=== PATIENT | male | born 1950 | race Caucasian/White ===

== ENCOUNTER 2023-03-01 18:23 | Emergency (ER) | payer MEDICARE, OTHER, SELFPAY ==
[2023-03-01] VITALS (18 sets, daily range): BP systolic 104–121; BP diastolic 68–95; PULSE 85–135; RESP 14–28; TEMP 36.3–36.6; O2SAT 95–100
--- NOTE | 2023-03-01 | ECG_ITS ---
Measurements Intervals [place] Rate: 90 P: [place]: 0 QRS: 248 QRSD: 140 T: 204 QT: 404 QTc: 495 Interpretive Statements ATRIAL FLUTTER/TACHYCARDIA WITH NORMAL VENTRICULAR RESPONSE LEFT BUNDLE BRANCH BLOCK BASELINE ARTIFACT- I, II, AVR, AVL, AVF ABNORMAL ECG COMPARED TO ECG 03/01/2023 18:30:55 HEART RATE HAS DECREASED Electronically Signed On 03-02-2023 7:04:13 CDT by Jason Palm D.O.
--- NOTE | ~2023-03-01 | CT_ITS ---
Clinical Indication: Shortness of breath, hyperbilirubinemia CT Scan of the Chest, Abdomen, and Pelvis without Contrast: Technique: Contiguous sections were acquired throughout the chest, abdomen, and pelvis without IV con trast administration. Dose reduction technique was used on this scan by utilizing automated exposure control and iterative reconstruction technique. The dose-length product (DLP) was 739.68 mGy-cm. Findings: There is no evidence of any significant mediastinal, hilar or axillary lymphadenopathy. Small calcifi ed mediastinal/hilar lymph nodes are present. Atherosclerotic calcifications of the aorta and coronar y arteries are present. No pericardial effusion. No aortic aneurysm. Small bilateral pleural effusions are present. There is mild to moderate emphysema. There is a 1.9 cm spiculated nodule in the anterior right upper lobe (axial image 31). Several calcified granulomas are present. Questionable micronodular contour of the liver noted. The spleen, pancreas, gallbladder, adrenals and kidneys are within normal limits. There are atherosclerotic calcifications of the aorta. No lymphad enopathy. No bowel obstruction or bowel wall thickening. There is no evidence to suggest acute appendicitis. Possible urinary bladder wall thickening versus underdistention. Prostate gland and seminal vesicles are unremarkable. Small amount of abdominopelvic ascites is present. Mild compression deformity of T8 . Impression: 1.9 cm spiculated right upper lobe nodule. This is suspicious for neoplasm, versus possibly nodular s carring. Recommend tissue sampling to establish a histologic diagnosis versus PET/CT. Mild to moderate emphysema. Small bilateral pleural effusions. Questionable micronodular contour of liver. Correlate for cirrhosis. Small amount of abdominopelvic ascites. Probable mild compression deformity of T8, likely chronic. Reviewed, dictated and finalized at [facility]. Impression: 1.9 cm spiculated right upper lobe nodule. This is suspicious for neoplasm, [place] possibly nodular scarring. Recommend tissue sampling to establish a histolo gic diagnosis versus PET/CT. Mild to moderate emphysema. Small bilateral pleural effusions. Questionable micronodular contour of liver. Correlate for cirrhosis. Small amount of abdominopelvic ascites. Probable mild compression deformity of T8, likely chronic.
--- NOTE | ~2023-03-01 | XR_ITS ---
Portable chest x-ray Comparison: None Clinical History: Palpitations Findings: Lungs are clear, without focal consolidation or pleural effusion. Cardiomediastinal silho uette is mildly prominent, status post median sternotomy. Bones and soft tissues are unremarkable. Impression: Clear lungs. Mild cardiomegaly, status post median sternotomy. Correlate with cardiac clinical history. Reviewed, dictated and finalized at location . Impression: Clear lungs. Mild cardiomegaly, status post median sternotomy. Correlate with cardiac clinic al history.
--- NOTE | 2023-03-01 18:35 | ED.ARRPALP ---
HPI - Arrhythmia/Palpitations General Chief Complaint: Arrhythmia/Palpitations Stated Complaint: PALPITATIONS, CARDIAC PATIENT History of Present Illness HPI narrative: 72-year-old male with history of coronary disease and triple vessel bypass in May presented to the ED for evaluation of 2 weeks of rapid heart rate. Patient states he was going in to have a lung biopsy and was found to have a rapid heart rate. Patient was told to return to see if the rapid heart rate resolves. Patient states that the rapid heart rate has persisted. Patient denies any associated chest pain but states he has had some associated shortness of breath. Related Data Allergies Allergy/AdvReac Type Severity Reaction Status Date / Time No Known Allergies Allergy Verified 03/01/23 18:57 Review of Systems Review of Systems: All systems reviewed & are unremarkable except as noted in HPI and below Exam Narrative: APPEARANCE: Well appearing, no pain, no distress, well-nourished. HEAD: normocephalic, atraumatic. EYES: PERRLA/EOMI, conjunctivae clear. NOSE: Normal no drainage NECK: Supple. No adenopathy, no masses. RESPIRATORY: Airway patent, respirations nonlabored. Clear to auscultation bilaterally, no rales, rhonchi, wheezing. CARDIOVASCULAR: A-fib with RVR ABDOMINAL: Soft, nontender, nondistended, normal bowel sounds MUSCULOSKELETAL: Moves all extremities. Strength/ROM intact, No edema, No calf tenderness. NEURO: Alert. Cranial nerves II through XII intact. Grossly intact SKIN: Warm, dry. Normal Color Course Course Emergency Course: 72-year-old male presented to ED for evaluation of rapid heart rate has been going on for the last 3 weeks. Upon arrival to the ED patient's heart rate was in the 130s and was found to be in A-fib with RVR. Patient denied any associated chest pain with this. Patient reports he has no prior history of A-fib or congestive heart failure. Patient reports decreased p.o. intake and patient does have an acute kidney injury with a creatinine of 1.8 and a potassium of 5.3. Patient's lactic acid was 10.2. Patient does have an elevated T. bili at 2.3, elevated AST and 5000 and elevated ALT at 2000. Patient had an elevated D-dimer greater than 20. Patient's kidney function has nonamenable to CT with contrast. V/Q perfusion study was ordered to evaluate for a pulmonary embolism. CT chest abdomen pelvis without contrast was ordered. Case was discussed with the PA for anticipated transfer due to his physicians being at the [facility]. Case is discussed with the MOD at the [facility] and patient was accepted for transfer. Patient and family were updated on the results of the work-up so far and plan for transfer. Vital Signs Vital signs: Vital Signs Temperature 97.8 F 03/01/23 18:26 Pulse Rate 135 H 03/01/23 18:26 Respiratory Rate 20 03/01/23 18:26 Blood Pressure 121/95 H 03/01/23 18:26 Pulse Oximetry 100 03/01/23 18:26 Oxygen Delivery Nasal Cannula 03/01/23 18:26 Oxygen Flow Rate 3 03/01/23 18:26 Temperature 97.4 F L 03/01/23 19:30 Pulse Rate 99 03/01/23 19:30 Respiratory Rate 19 03/01/23 19:30 Blood Pressure 116/88 03/01/23 19:30 Pulse Oximetry 96 03/01/23 19:30 Oxygen Delivery Nasal Cannula 03/01/23 18:26 Oxygen Flow Rate 3 03/01/23 18:26 MDM - Arrhythmia/Palpitations Differential Diagnosis Differential diagnosis: Likely palpitations, sinus tachycardia, artial fibrillation, artial flutter and other (CHF, pulm embolism) Lab Data Attestation: I reviewed the patient's lab results. 03/01/23 18:43 03/01/23 18:43 Labs: Lab Results 03/01/23 03/01/23 Range/Units 18:43 19:34 WBC 8.3 (4.5-10.0) K/mm3 RBC 4.40 L (4.6-6.20) M/mm3 Hgb 14.4 (14.0-18.0) g/dL Hct 47.3 (42.0-52.0) % MCV 107.5 H (80-100) fl MCH 32.7 (26-34) pg MCHC 30.4 L (32-36) g/dl RDW 14.0 (11.5-14.5) % Plt Count 158 (150-375) k/mm3 MPV 12.1 H (7.
[2023-03-01] MEDS: dilTIAZem HCl INJ 25 MG/5 ML VIAL 10 MG IV PUSH (18:45)
[2023-03-01] MEDS: Please add drug allergy info to patient profile. 1 EACH XX ×2 (18:45→19:36)
[2023-03-01 18:50] LABS: Basophils Percent Auto 0.1 % (0.2-1.2); Eosinophils Percent Auto 0.1 % (0-4.4); Hematocrit 47.3 % (42.0-52.0); Hemoglobin 14.4 g/dL (14.0-18.0); Immature Granulocyte Absolute 0.06 K/mm3 (0.00-0.031); Immature Granulocyte Percent A 0.7 % (0-0.5); Lymphocytes Absolute Auto 0.75 K/mm3 (0.9-3.2); Mean Corpuscular HGB Conc 30.4 g/dl (32-36); Mean Corpuscular Hemoglobin 32.7 pg (26-34); Mean Corpuscular Volume 107.5 fl (80-100); Mean Platelet Volume 12.1 fl (7.4-10.4); Monocytes Absolute Auto 0.7 K/mm3 (0.1-0.6); Monocytes Percent Auto 8.4 % (2.6-8.5); Neutrophils Absolute Auto 6.8 K/mm3 (1.3-6.7); Neutrophils Percent Auto 81.7 % (45.5-73.1); Nucleated Red Blood Cells Absolute Auto 0.1 K/mm3 (0.0-0.012); Nucleated Red Blood Cells Perc 1.4 % (0.0-0.2); Platelet Count Result 158 k/mm3 (150-375); White Blood Count 8.3 K/mm3 (4.5-10.0)
[2023-03-01] MEDS: dilTIAZem 100 MG/100 ML 100 MG/100 ML BAG IV CONT (18:50)
[2023-03-01 19:01] LABS: Lactic Acid Reflex 10.2 mmol/L (0.7-2.0)
[2023-03-01 19:03] LABS: INR 2.8; Partial Thromboplastin Time 33.1 SECONDS (22.3-36.8); Prothrombin Time 31.8 Seconds (11.1-14.7)
[2023-03-01 19:04] LABS: Alkaline Phosphatase 116 U/L (38-126); Anion Gap 20 mmol/L (8-16); Bilirubin,Total 2.3 mg/dL (0.2-1.3); Blood Urea Nitrogen 43 mg/dL (9-20); Calcium 8.7 mg/dL (8.4-10.2); Carbon Dioxide 16 mmol/L (22-30); Chloride 102 mmol/L (98-107); Estimated CRCL calculation 32 ml/min; Estimated Glomerular Filt Rate 37; Glucose 95 mg/dL (65-110); Potassium 5.3 mmol/L (3.4-5.0); Sodium 138 mmol/L (137-145)
[2023-03-01 19:09] LABS: Alanine Aminotransferase 1924 U/L (6-50); NT Pro B Type Natriuretic Pept 12900 pg/mL (19.9-100)
[2023-03-01 19:11] LABS: Burr Cells 1+ (NORMAL); Macrocytosis 1+ (NORMAL); Ovalocytes 1+ (NORMAL); Platelet Estimate Adequate (Adequate); Schistocytes None Seen (NORMAL)
[2023-03-01 19:21] LABS: Aspartate Amino Transferase 5016 U/L (17-59)
[2023-03-01 19:22] LABS: D Dimer > 20.00 ug/mL (<0.48)
[2023-03-01] MEDS: SODIUM CHLORIDE 0.9% IV 1,000 ML 999 ML IV CONT (19:28)
--- NOTE | 2023-03-01 19:28 | ECG_ITS ---
Measurements Intervals [place] Rate: 133 P: [place]: 0 QRS: 24 QRSD: 147 T: 65 QT: 342 QTc: 510 Interpretive Statements ATRIAL FLUTTER/TACHYCARDIA WITH RAPID VENTRICULAR RESPONSE VENTRICULAR PREMATURE COMPLEX LEFT BUNDLE BRANCH BLOCK ABNORMAL ECG NO PREVIOUS ECG AVAILABLE FOR COMPARISON Electronically Signed On 03-02-2023 7:00:38 CDT by Jason Palm D.O.
[2023-03-01 19:57] LABS: Appearance Urine Cloudy (Clear); Bacteria Urine None Seen /hpf; Bilirubin Urine 1+ (Negative); Blood Urine 1+ (Negative); Color Urine Dark Yellow (Yellow); Glucose Urine UA 3+ mg/dL (Negative); Ketones Urine Negative (Negative); Leukocyte Esterase Ur Negative LEU/UL (Negative); Need Manual Microscopic Reviewed; Nitrate Urine Negative (Negative); Non Pathogenic Casts >20; Protein Urine 2+ mg/dL (Negative); Specific Grav Ur 1.022 (1.001-1.035); Squamous Epithelial Cell Urine Few /hpf (Few)
[2023-03-01 19:58] LABS: Add Urine Microscopic? YES
[2023-03-01 20:15] LABS: Influenza A QL RT-PCR Negative (Negative); Influenza B QL RT-PCR Negative (Negative); RSV RNA, RT-PCR Negative (Negative); SARS-CoV-2 RNA PCR Negative (Negative)
[2023-03-01 21:51] LABS: Reflex Lactic Acid Yes or No Add Lactic
--- NOTE | 2023-03-01 22:39 | PC.NURSE ---
[facility] called transport [id number]
[2023-03-01 23:16] LABS: Lactic Acid 9.9 mmol/L (0.7-2.0)
--- NOTE | 2023-03-01 23:52 | PC.NURSE ---
[address] [facility] moved eta [id number]
[2023-03-02] VITALS: BP 113/81; PULSE 94; RESP 20; O2SAT 99
--- NOTE | 2023-03-02 00:36 | PC.NURSE ---
d/t [facility] eta changes alt. Ems services called to request pt trx. Billy, Klaus, and [facility] all declined ALS trx. [facility] accepted trip, eta [phone].
[2023-03-02 01:06] VITALS: BP 101/52; PULSE 94; RESP 33; TEMP 36.6; O2SAT 99
== END 2023-03-02 01:09 | disposition short-term general hospital (02) ==
PROVIDERS: Emergency Provider Emergency Medicine
DX: I48.91 Unspecified atrial fibrillation (principal); R74.01 Elevation of levels of liver transaminase levels; R79.9 Abnormal finding of blood chemistry, unspecified; R00.0 Tachycardia, unspecified; Z20.822 Contact with and (suspected) exposure to COVID-19; I25.10 Atherosclerotic heart disease of native coronary artery without angina pectoris; Z95.1 Presence of aortocoronary bypass graft; R06.02 Shortness of breath
CPT/HCPCS: 36415; 71045; 71250; 74176; 80053; 81001; 83605; 83880; 85025; 85380; 85610; 85730; 87086; 87147; 87181; 87186; 87637; 93005; 96365; 96366; 99285; J7030